=== PATIENT | male | born 1985 | race African-American/Black ===

== ENCOUNTER 2022-01-03 18:53 | Emergency (ER) | payer BC, SELFPAY ==
--- NOTE | ~2022-01-03 | CT_ITS ---
EXAMINATION: CT abdomen pelvis w con DATE: 01/03/2022 23:01 INDICATION: abdominal pain TECHNIQUE: Computed tomography (CT) of the abdomen and pelvis was performed without intravenous contr ast. Automated exposure control and iterative reconstruction technique were employed. The dose-length product was 253.37 mGy-cm. COMPARISON: None. FINDINGS: Lower thorax: Unremarkable Liver: Normal. Biliary/Gallbladder: Gallbladder is normal. No bile duct dilation. Pancreas: No mass or duct dilation. Spleen: Normal. Adrenals:No mass. Kidneys: No mass, stone, or hydronephrosis. GI tract: No small or large bowel dilation. Distal esophageal and gastric wall edema as can be seen w ith esophagitis/gastritis. Focal, short segment cecal wall thickening. Hyperemia in the distal ileum and ileocecal valve. Appendix not visualized, calcifications/densities about the cecum may represent postsurgical change from prior appendectomy Mesentery/Peritoneum: No ascites, mass, or free air. Retroperitoneum: No mass. Pelvis: Pelvic organs are within normal limits. Soft Tissues: Soft tissues and body wall unremarkable. Bones: No acute osseous finding. IMPRESSION: Cecal wall thickening, ileocecal valve wall edema, and mucosal hyperemia in the distal ileum and ileo cecal valve, likely secondary to infectious or inflammatory etiology. Ischemia considered less likely , unless there is a history of vasculitis. Reviewed, dictated and finalized at location K. IMPRESSION: Cecal wall thickening, ileocecal valve wall edema, and mucosal hyperemia in the distal ileum and ileocecal valve, likely secondary to infectious or inflammato ry etiology. Ischemia considered less likely, unless there is a history of vasc ulitis.
[2022-01-03 19:00] VITALS: BP 108/85; PULSE 81; RESP 16; TEMP 36.3; O2SAT 100
[2022-01-03 19:58] LABS: Basophils Absolute Auto 0.1 K/mm3 (0.0-0.1); Basophils Percent Auto 0.8 % (0.2-1.2); Eosinophils Absolute Auto 0.2 K/mm3 (0-0.3); Eosinophils Percent Auto 2.9 % (0-4.4); Hematocrit 52.1 % (42.0-52.0); Hemoglobin 17.5 g/dL (14.0-18.0); Immature Granulocyte Absolute 0.05 K/mm3 (0.00-0.031); Immature Granulocyte Percent A 0.6 % (0-0.5); Lymphocytes Percent Auto 20.3 % (18.3-44.2); Mean Corpuscular HGB Conc 33.6 g/dl (32-36); Mean Corpuscular Volume 80.5 fl (80-100); Mean Platelet Volume 8.9 fl (7.4-10.4); Monocytes Absolute Auto 1.2 K/mm3 (0.1-0.6); Monocytes Percent Auto 15.6 % (2.6-8.5); Neutrophils Absolute Auto 4.7 K/mm3 (1.3-6.7); Neutrophils Percent Auto 59.8 % (45.5-73.1); Platelet Count Result 311 k/mm3 (150-375); Red Blood Count 6.47 M/mm3 (4.6-6.20); Red Cell Distribution Width 12.5 % (11.5-14.5); White Blood Count 7.9 K/mm3 (4.5-10.0)
[2022-01-03 20:06] LABS: Alanine Aminotransferase 32 U/L (6-50); Albumin Level 4.7 g/dL (3.5-5.1); Alkaline Phosphatase 95 U/L (38-126); Anion Gap 12 mmol/L (8-16); Aspartate Amino Transferase 29 U/L (17-59); Bilirubin,Total 0.9 mg/dL (0.2-1.3); Blood Urea Nitrogen 20 mg/dL (9-20); Calcium 9.8 mg/dL (8.4-10.2); Carbon Dioxide 26 mmol/L (22-30); Chloride 96 mmol/L (98-107); Estimated CRCL calculation 75 ml/min; Estimated Glomerular Filt Rate > 60; Glucose 92 mg/dL (65-110); Lipase 140 U/L (23-300); Potassium 4.4 mmol/L (3.4-5.0); Sodium 134 mmol/L (137-145)
[2022-01-03 21:16] LABS: Appearance Urine Clear (Clear); Bilirubin Urine Negative (Negative); Blood Urine Negative (Negative); Color Urine Yellow (Yellow); Glucose Urine UA Negative (Negative); Ketones Urine Negative (Negative); Leukocyte Esterase Ur Negative LEU/UL (Negative); Nitrate Urine Negative (Negative); Protein Urine Negative (Negative); Urobilinogen Urine 0.2 mg/dL (<2.0)
[2022-01-03 21:20] LABS: Mucus Urine Rare /lpf; RBC Urine 0-2 /hpf (0-2); WBC Urine 0-3 /hpf
[2022-01-03 21:21] LABS: Add Urine Microscopic? NO
[2022-01-03] MEDS: ONDANSETRON INJ 4 MG/2 ML VIAL IV PUSH (22:45)
[2022-01-03] MEDS: SODIUM CHLORIDE 0.9% IV 1,000 ML 999 ML IV CONT (22:45)
--- NOTE | 2022-01-03 23:51 | ED.GENADULT ---
HPI - General Adult General Chief complaint: Nausea/Vomiting/Diarrhea Stated complaint: NAUSEA/DIARRHEA X1 WEEK Time Seen by Provider: 01/03/22 21:05 History of Present Illness HPI narrative: Patient is a 36-year-old gentleman who presents emerged from with chief complaint of abdominal pain. Patient reports that he has history of Crohn's disease and reports that he has been having some diarrhea and reports abdominal discomfort. The patient states is a sharp type pain and reports that he had some nausea and vomiting with this as well. Patient denies fever reports that feels different from his normal Crohn's exacerbation. Related Data Allergies Allergy/AdvReac Type Severity Reaction Status Date / Time No Known Allergies Allergy Verified 01/03/22 22:44 Review of Systems Review of Systems: A 10 system review of systems was completed on the patient and is negative except for what is stated in the HPI. Nursing and ancillary documentation was reviewed. PMFSH Comments Past medical history significant for Crohn's Surgical history significant for bowel resection Exam Narrative: GENERAL: Well-appearing, well-nourished, and in no acute distress. HEAD: Normocephalic, atraumatic. EYES: PERRLA and EOMI. ENT: Nares clear, no rhinorrhea or epistaxis. Mucous membranes moist. NECK: Supple. CHEST: Clear to auscultation. No respiratory distress. HEART: Regular rate and rhythm. No murmur heard. Normal peripheral pulses. ABDOMEN: Soft, diffuse mild tenderness, nondistended, normal active bowel sounds. EXTREMITIES: Normal range of motion. No edema. SKIN: Warm, dry, no rash. NEURO: No focal deficits. Alert and oriented x3. PSYCH: Normal mood and affect. Course Vital Signs Vital signs: Vital Signs Temperature 36.3 C L 01/03/22 19:00 Pulse Rate 81 01/03/22 19:00 Respiratory Rate 16 01/03/22 19:00 Blood Pressure 108/85 01/03/22 19:00 Pulse Oximetry 100 01/03/22 19:00 Oxygen Delivery Room Air 01/03/22 19:00 Temperature 36.3 C L 01/03/22 19:00 Pulse Rate 81 01/03/22 19:00 Respiratory Rate 16 01/03/22 19:00 Blood Pressure 108/85 01/03/22 19:00 Pulse Oximetry 100 01/03/22 19:00 Oxygen Delivery Room Air 01/03/22 19:00 Medical Decision Making Vital Signs Vital Signs: Vital Signs Temperature 36.3 C L 01/03/22 19:00 Pulse Rate 81 01/03/22 19:00 Respiratory Rate 16 01/03/22 19:00 Blood Pressure 108/85 01/03/22 19:00 Pulse Oximetry 100 01/03/22 19:00 Oxygen Delivery Room Air 01/03/22 19:00 Temperature 36.3 C L 01/03/22 19:00 Pulse Rate 81 01/03/22 19:00 Respiratory Rate 16 01/03/22 19:00 Blood Pressure 108/85 01/03/22 19:00 Pulse Oximetry 100 01/03/22 19:00 Oxygen Delivery Room Air 01/03/22 19:00 Lab Data Result diagrams: 01/03/22 19:41 01/03/22 19:41 Labs: Lab Results 01/03/22 01/03/22 01/03/22 Range/Units 19:41 19:41 20:57 WBC 7.9 (4.5-10.0) K/mm3 RBC 6.47 H (4.6-6.20) M/mm3 Hgb 17.5 (14.0-18.0) g/dL Hct 52.1 H (42.0-52.0) % MCV 80.5 (80-100) fl MCH 27.0 (26-34) pg MCHC 33.6 (32-36) g/dl RDW 12.5 (11.5-14.5) % Plt Count 311 (150-375) k/mm3 MPV 8.9 (7.4-10.4) fl Immature Gran % (Auto) 0.6 H (0-0.5) % Neut % (Auto) 59.8 (45.5-73.1) % Lymph % (Auto) 20.3 (18.3-44.2) % [place] % (Auto) 15.6 H (2.6-8.5) % Eos % (Auto) 2.9 (0-4.4) % Baso % (Auto) 0.8 (0.2-1.2) % Lymph # (Auto) 1.60 (0.9-3.2) K/mm3 [place] # (Auto) 1.2 H (0.1-0.6) K/mm3 Eos # (Auto) 0.2 (0-0.3) K/mm3 Baso # (Auto) 0.1 (0.0-0.1) K/mm3 Abs Immat Gran (auto) 0.05 H (0.00-0.031) K/mm3 Absolute Neuts (auto) 4.7 (1.3-6.7) K/mm3 Absolute Nucleated RBC 0.0 (0.0-0.012) K/mm3 Nucleated RBC % 0.0 (0.0-0.2) % Sodium 134 L (137-145) mmol/L Potassium 4.4 (3.4-5.0) mmol/L Chloride 96 L (98-107) mmol/L Carbon Dioxide 26
[2022-01-04 00:58] VITALS: PULSE 82; RESP 16; O2SAT 98
== END 2022-01-04 01:00 | disposition home or self-care (01) ==
PROVIDERS: Emergency Medicine; Emergency Provider Emergency Medicine
DX: K52.9 Noninfective gastroenteritis and colitis, unspecified (principal); K50.90 Crohn's disease, unspecified, without complications; Z90.49 Acquired absence of other specified parts of digestive tract
CPT/HCPCS: 36415; 74177; 80053; 81003; 83690; 85025; 96361; 96374; 99284; J2405; J7030; Q9967